=== PATIENT | female | born 1995 | race Caucasian/White ===

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

== ENCOUNTER → 2019-03-07 | Outpatient (CLI) | payer OTHER ==
[~2019-03-07] MED LIST: LEVO1TAB20 PO; METH18TA4 PO; METH27TA4 PO
--- NOTE | 2019-03-07 11:07 | Diagnostic Imaging Report ---
INDICATION: Anatomy scan. TECHNIQUE: Multiple real-time grayscale images were obtained over the gravid uterus. COMPARISON: None FINDINGS: There is a single live fetus in a variable presentation. heart rate was recorded at 155 BPM. Placenta is posterior. Amniotic fluid volume is normal. Cervical length is 4.2 cm. The kidneys, bladder and stomach are unremarkable. The brain is unremarkable. There is a four-chamber heart. There is a three-vessel cord with normal insertion. spine is unremarkable. Biometrical measurements are as follows: Biparietal 4.63 cm, age 20 weeks 0 days. Head circumference 17.81 cm, age 20 weeks 2 days. Abdominal circumference 15.38 cm, age 20 weeks 5 days. Femur length 3.39 cm, age 20 weeks 5 days. Sonographic estimate age: 20 weeks 3 days. Sonographic estimated date of delivery: 07/22/2019. Estimated Weight: 361 gm (+/- 53 gm). LMP percentile: 44%. heart rate: 155 beats per minute. number: 1 of 1. IMPRESSION: Single live IUP at approximately 20 weeks 3 days gestational age. Estimated date of confinement sonographically is 07/22/2019. Dictated by: Dictated on workstation # [id number]
== END ==
LOC: RAD 09:34
PROVIDERS: ATTEND Nurse Practitioner Women's Health
DX: Z34.92 Encounter for supervision of normal pregnancy, unspecified, second trimester (principal); Z3A.20 20 weeks gestation of pregnancy
CPT/HCPCS: 76805

== ENCOUNTER → 2019-05-03 | Outpatient (CLI) | payer MEDICAID, OTHER ==
--- NOTE | 2019-05-03 11:50 | Diagnostic Imaging Report ---
INDICATION: Follow-up growth. TECHNIQUE: Multiple real-time grayscale images were obtained over the gravid uterus. COMPARISON: 03/07/2019. FINDINGS: There is a single live fetus in a breech presentation. heart rate was recorded at 147 BPM. Placenta is posterior. Amniotic fluid volume is normal. Cervical length is 3.8 cm. Biometrical measurements are as follows: Biparietal 7.51 cm, age 30 weeks 1 days. Head circumference 27.58 cm, age 30 weeks 2 days. Abdominal circumference 25.31 cm, age 29 weeks 4 days. Femur length 5.57 cm, age 29 weeks 3 days. Sonographic estimate age: 29 weeks 6 days. Sonographic estimated date of delivery: 07/13/2019. Estimated Weight: 1413 gm (+/- 206 gm). LMP percentile: 69%. heart rate: 147 beats per minute. number: 1 of 1. IMPRESSION: Single live IUP of approximately 30 weeks gestational age, showing normal interval growth when compared with prior exam. No complicating features are identified. Dictated by: Dictated on workstation # [id number]
== END ==
LOC: RAD 10:04
PROVIDERS: ATTEND Nurse Practitioner Women's Health
DX: Z36.89 Encounter for other specified antenatal screening (principal); Z3A.30 30 weeks gestation of pregnancy; Z79.899 Other long term (current) drug therapy
CPT/HCPCS: 76816

== ENCOUNTER → 2019-06-04 | Outpatient (CLI) | payer MEDICAID ==
--- NOTE | 2019-06-04 13:50 | Diagnostic Imaging Report ---
INDICATION: Evaluate growth. TECHNIQUE: Multiple real-time grayscale images were obtained over the gravid uterus. COMPARISON: 05/03/2019. FINDINGS: There is a single live fetus in a cephalic presentation. heart rate was recorded at 132 bpm. Placenta is posterior. Amniotic fluid index is 18.7 cm. Cervical length is 4.7 cm. Biometrical measurements are as follows: Biparietal 8.76 cm, age 35 weeks 3 days. Head circumference 33.65 cm, age 38 weeks 4 days. Abdominal circumference 31.38 cm, age 35 weeks 3 days. Femur length 6.90 cm, age 35 weeks 3 days. Sonographic estimate age: 36 weeks 2 days. Sonographic estimated date of delivery: 06/30/2019. Estimated Weight: 2741 gm (+/- 400 gm). LMP percentile: 97%. heart rate: 132 beats per minute. number: 1 of 1. IMPRESSION: Single live IUP measuring 36 weeks gestational age. This is measuring approximately two weeks larger when compared with prior ultrasounds. No other abnormality is detected. Dictated by: Dictated on workstation # [id number]
== END ==
LOC: RAD 11:32
PROVIDERS: ATTEND Nurse Practitioner Women's Health
DX: Z36.9 Encounter for antenatal screening, unspecified (principal); Z3A.36 36 weeks gestation of pregnancy; Z79.899 Other long term (current) drug therapy
CPT/HCPCS: 76816

== ENCOUNTER 2019-06-23 12:50 | Outpatient (CLI) | payer MEDICAID ==
[~2019-06-23] VITALS: Ht 167.7 cm; Wt 85.5 kg
--- NOTE | 2019-06-23 12:42 | NUR ---
OPLA PERRY presented to unit from home, with c/o CRAMPING / PELVIC PAIN. OPAL PERRY weighed, gowned, voided, and to bed. EFHM and TOCO applied, VS taken. OPAL PERRY oriented to bed controls, call light, TV, heat, and A/C controls.
[2019-06-23 13:17] VITALS: BP 105/66
[2019-06-23 13:33] LABS: BILIRUBIN,URINE NEGATIVE (NEGATIVE); CLARITY,URINE CLEAR; COLOR,URINE YELLOW; GLUCOSE, URINE (UA) NEGATIVE (NEGATIVE); KETONES,URINE NEGATIVE (NEGATIVE); LEUKOCYTE ESTERASE ,URINE NEGATIVE (NEGATIVE); NITRITE,URINE NEGATIVE (NEGATIVE); PROTEIN,URINE NEGATIVE (NEGATIVE)
[2019-06-23 13:40] LABS: BACTERIA,URINE NEGATIVE /HPF; WBC,URINE RARE /HPF
--- NOTE | 2019-06-23 13:44 | NUR ---
Dr. Alexander notified of patient's arrival, complaints, exam, UA, and EFM tracing. New orders received.
--- NOTE | 2019-06-23 14:00 | NUR ---
[place] Head tray provided.
[2019-06-23] MEDS ORDERED: PREN1TAB79 PO (15:09)
--- NOTE | 2019-06-23 15:19 | Discharge Summary ---
Discharge Summary 36 weeks gestation with false labor Patient was a clinical evaluation and was not seen VICK PALACIOS MD Jun 23, 2019 15:19
--- NOTE | 2019-06-23 15:26 | NUR ---
Discharge instructions and medications reviewed with patient both written and verbally. Patient verbalizes understanding and questions answered.
--- NOTE | 2019-06-23 15:30 | NUR ---
Patient discharged at this time and ambulated from the unit with no signs or symptoms of distress noted.
== END 2019-06-23 15:30 | disposition home or self-care (01) ==
LOC: WSo 12:50 → LDRP 12:50 → WSo 15:30
PROVIDERS: ATTEND Obstetrics & Gynecology
DX: O47.03 False labor before 37 completed weeks of gestation, third trimester (principal); Z3A.36 36 weeks gestation of pregnancy
CPT/HCPCS: 81000; 99214

== ENCOUNTER 2019-06-25 17:25 | Outpatient (CLI) | payer MEDICAID ==
[~2019-06-25] VITALS: Ht 170.5 cm; Wt 86.5 kg
[~2019-06-25 17:25] MED LIST changes: +PREN1TAB79 PO
--- NOTE | 2019-06-25 17:25 | NUR ---
OPAL PERRY presented to unit via Ambulatory from ED, accompanied by noone, with c/o ABD PAIN. OPAL PERRY weighed, gowned, voided, and to bed. EFHM and TOCO applied, VS taken. OPAL PERRY oriented to bed controls, call light, TV, heat, and A/C controls.
[2019-06-25 17:50] VITALS: BP 119/66
[2019-06-25 18:00] VITALS: BP 119/66
[2019-06-25 18:20] VITALS: BP 108/62
[2019-06-25 18:22] LABS: BILIRUBIN,URINE NEGATIVE (NEGATIVE); CLARITY,URINE CLEAR; COLOR,URINE YELLOW; GLUCOSE, URINE (UA) NEGATIVE (NEGATIVE); KETONES,URINE NEGATIVE (NEGATIVE); LEUKOCYTE ESTERASE ,URINE 1+ (NEGATIVE); NITRITE,URINE NEGATIVE (NEGATIVE); PH,URINE 6.5 (5-9); PROTEIN,URINE NEGATIVE (NEGATIVE)
[2019-06-25 18:31] LABS: BACTERIA,URINE TRACE /HPF; WBC,URINE RARE /HPF
--- NOTE | 2019-06-25 18:40 | NUR ---
RN calls Dr Perez with pt report. Pt of Dr Severino, first , 36 weeks and 2 days - CO worsening epigastric pain that started about 1530 today and UC that began about 1430 today stating feeling UC Q 10 min rating 7/10. TOCO shows UC Q 2-5 min at this time. Pt CO headache not relieved by tylenol. Decreased movement since pain began. SVE closed cervix. No leaking, bleeding. Urine dip results read to Dr. Dr Perez wants to start IV, give 1 L LR, 25mcg fent, & Fioricet. RN to call with update after interventions.
[2019-06-25] MEDS ORDERED: fentaNYL INJECTION 100 MCG/2 ML AMP IVP PRN (18:45)
[2019-06-25] MEDS ORDERED: LACTATED RINGERS 1,000 ML IV SCH (18:45)
[2019-06-25] MEDS ORDERED: ACET/BUTAL/CAFF (FIORICET) TAB PO PRN (18:45)
[2019-06-25 18:50] VITALS: BP 105/59
--- NOTE | 2019-06-25 19:10 | NUR ---
report given to benjamín hoffman
[2019-06-25 20:00] VITALS: BP 111/58
[2019-06-25] MEDS ORDERED: D5 LR IV SOLUTION 1,000 ML IV ONE (20:46)
[2019-06-25] MEDS: D5 LR IV SOLUTION 1,000 ML IV SCH (20:51)
[2019-06-25 21:00] VITALS: BP 116/60
[2019-06-26] MEDS: D5 LR IV SOLUTION 1,000 ML IV SCH (04:57)
[2019-06-26 08:00] VITALS: BP 112/62
--- NOTE | 2019-06-26 08:00 | NUR ---
initial shift assessment completed. reports c/o headache in frontal area. reports occasional ctx.
--- NOTE | 2019-06-26 09:45 | NUR ---
monitors off. MAX reviewed with pt and family members. questions answered prn. Addendum: 06/26/19 at 1122 by BRO HESS RN dismissal order received from . pt reports ORTEGA earlier relieved by Christopher. Rx received from - will call into pharmacy of pt's choice. follow up with as previously scheduled
--- NOTE | 2019-06-26 10:02 | NUR ---
dismissal instructions given- verbalizes understanding. signature page signed, placed on chart.
--- NOTE | 2019-06-26 10:05 | NUR ---
pt ambulated to private vehicle with s/o @ side. pt stable with no sx's of distress noted.
== END 2019-06-26 10:05 | disposition home or self-care (01) ==
LOC: WSo 17:25 → LDRP 17:26 → WSo 06-26 10:05
PROVIDERS: ATTEND Obstetrics & Gynecology
DX: O26.893 Other specified pregnancy related conditions, third trimester (principal); R10.13 Epigastric pain; Z3A.36 36 weeks gestation of pregnancy
CPT/HCPCS: 81000

== ENCOUNTER 2019-07-10 15:36 | Outpatient (CLI) | payer MEDICAID ==
[~2019-07-10] VITALS: Ht 167.7 cm; Wt 87.5 kg
--- NOTE | 2019-07-10 15:29 | NUR ---
OPAL PERRY presented to unit via AMBULATORY from HOME, accompanied by S/O, with c/o PELVIC PAIN AND PRESSURE. OPAL PERRY weighed, gowned, voided, and to bed. EFHM and TOCO applied, VS taken. OPAL PERRY oriented to bed controls, call light, TV, heat, and A/C controls.
[2019-07-10 15:41] VITALS: BP 129/68
[2019-07-10 15:50] VITALS: BP 129/68
[2019-07-10 15:51] LABS: BILIRUBIN,URINE NEGATIVE (NEGATIVE); CLARITY,URINE CLEAR; COLOR,URINE YELLOW; GLUCOSE, URINE (UA) NEGATIVE (NEGATIVE); KETONES,URINE NEGATIVE (NEGATIVE); LEUKOCYTE ESTERASE ,URINE NEGATIVE (NEGATIVE); NITRITE,URINE NEGATIVE (NEGATIVE); PH,URINE 7.5 (5-9); PROTEIN,URINE NEGATIVE (NEGATIVE)
[2019-07-10] MEDS ORDERED: BUPR-42 PO (15:53)
[2019-07-10 16:15] LABS: AMORPHOUS SEDIMENT,UR FEW AMOR PHOSPHATE /LPF; BACTERIA,URINE TRACE /HPF
--- NOTE | 2019-07-10 16:21 | NUR ---
DR. EWING CALLED, NO ANSWER.
--- NOTE | 2019-07-10 16:32 | NUR ---
DR. EWING CALLED UNIT, UPDATED ON PT'S ARRIVAL, C/O, GESTATION, REVIEW OF STRIP, VS AND UA RESULTS. PT ALREADY HAS AN APPT TO BE SEEN TOMORROW. ORDERS RECEIVED FOR DISCHARGE HOME WITH LABOR PRECAUTIONS.
--- NOTE | 2019-07-10 16:42 | NUR ---
DISCHARGE PAPERS PROVIDED AND REVIEWED WITH PT, PT VERBALIZES UNDERSTANDING AND DENIES ANY QUESTIONS AT THIS TIME. PAPER SIGNED.
--- NOTE | 2019-07-10 16:45 | NUR ---
PT DISCHARGED FROM [facility] TO [facility] VIA AMBULATORY IN STABLE CONDITION ACC BY S/O.
--- NOTE | 2019-07-11 07:58 | Physician Query-Final Dx ---
MAGALIE DELGADO 07/11/19 0758: Clinic Account Progress/Dx Physician Query: Please give diagnosis Please include # weeks gestation Date of Service Jul 10, 2019 at 15:36 OLIMPIA EWING DO 07/12/19 0832: Clinic Account Progress/Dx DIAGNOSIS: Diagnosis 38 week pelvic pressure MAGALIE DELGADO Jul 11, 2019 07:58 OLIMPIA EWING DO Jul 12, 2019 08:32
== END 2019-07-10 16:45 | disposition home or self-care (01) ==
LOC: WSo 15:36 → LDRP 15:36 → WSo 16:45
PROVIDERS: ATTEND Obstetrics & Gynecology
DX: O26.899 Other specified pregnancy related conditions, unspecified trimester (principal); R10.2 Pelvic and perineal pain; Z3A.00 Weeks of gestation of pregnancy not specified
CPT/HCPCS: 81000

== ENCOUNTER 2019-07-16 19:19 | Inpatient (IN) | payer MEDICAID ==
[~2019-07-16] VITALS: Ht 167 cm; Wt 88.0 kg
[2019-07-16] VITALS (9 sets, daily range): BP systolic 108–131; BP diastolic 58–73
--- NOTE | 2019-07-16 19:15 | NUR ---
OPAL PERRY presented to unit via ambulatory from ED, accompanied by s/o , with c/o INDUCTION 39 06/15. OPAL PERRY weighed, gowned, voided, and to bed. EFHM and TOCO applied, VS taken. OPAL PERRY oriented to bed controls, call light, TV, heat, and A/C controls.
[~2019-07-16 19:19] MED LIST changes: +BUPR-42 PO
[2019-07-16] MEDS ORDERED: D5 LR IV SOLUTION 1,000 ML IV ONE (19:42)
[2019-07-16] MEDS ORDERED: LACTATED RINGERS 1,000 ML IV SCH (19:44)
[2019-07-16] MEDS ORDERED: TERBUTALINE INJ 1 MG/ML (BRETHINE) AMP SC PRN (19:45)
[2019-07-16] MEDS ORDERED: MISOPROSTOL 100 MCG (CYTOTEC) TAB PO NR (19:45)
[2019-07-16] MEDS: D5 LR IV SOLUTION 1,000 ML IV SCH (20:02)
[2019-07-16 20:13] LABS: BASOPHILS % (AUTO) 0 % (0-10); EOSINOPHILS # (AUTO) 0.1 10^3/uL (0.0-0.3); EOSINOPHILS % (AUTO) 1 % (0-10); HEMATOCRIT 33 % (35-52); HEMOGLOBIN 10.6 G/DL (11.5-16.0); LYMPHOCYTES # (AUTO) 3.2 X 10^3 (1.0-4.0); LYMPHOCYTES % (AUTO) 24 % (12-44); MEAN CORPUSCULAR HEMOGLOBIN 28 PG (25-34); MEAN CORPUSCULAR HGB CONC 32 G/DL (32-36); MEAN CORPUSCULAR VOLUME 87 FL (80-99); MEAN PLATELET VOLUME 9.4 FL (7.4-10.4); MONOCYTES # (AUTO) 1.1 X 10^3 (0.0-1.0); MONOCYTES % (AUTO) 8 % (0-12); NEUTROPHILS # (AUTO) 8.9 X 10^3 (1.8-7.8); NEUTROPHILS % (AUTO) 67 % (42-75); PLATELET COUNT 344 10^3/uL (130-400); RED CELL DISTRIBUTION WIDTH 14.8 % (10.0-14.5); WHITE BLOOD COUNT 13.3 10^3/uL (4.3-11.0)
[2019-07-16 20:56] LABS: BILIRUBIN,URINE NEGATIVE (NEGATIVE); CLARITY,URINE SL CLOUDY; COLOR,URINE YELLOW; GLUCOSE, URINE (UA) NEGATIVE (NEGATIVE); KETONES,URINE NEGATIVE (NEGATIVE); LEUKOCYTE ESTERASE ,URINE NEGATIVE (NEGATIVE); NITRITE,URINE NEGATIVE (NEGATIVE); PH,URINE 7.5 (5-9); PROTEIN,URINE NEGATIVE (NEGATIVE)
[2019-07-16 21:25] LABS: BACTERIA,URINE TRACE /HPF; WBC,URINE 0-2 /HPF
[2019-07-16 21:26] LABS: AMORPHOUS SEDIMENT,UR LARGE AMOR PHOSPHATE /LPF; SQUAMOUS EPITHELIAL CELL,UR RARE /HPF
[2019-07-17] VITALS (71 sets, daily range): BP systolic 96–135; BP diastolic 6–81
[2019-07-17] MEDS: MISOPROSTOL 100 MCG (CYTOTEC) TAB PO SCH ×3 (00:45→09:19)
[2019-07-17] MEDS ORDERED: ZOLPIDEM 5 MG (AMBIEN) TAB PO ONE (00:45)
[2019-07-17] MEDS: D5 LR IV SOLUTION 1,000 ML IV SCH ×4 (03:40→22:32)
--- NOTE | 2019-07-17 07:25 | NUR ---
DR. EWING CALLED UNIT, UPDATED GIVEN PER H. TRACEY ZEPEDA - NEW ORDERS RECEIVED.
[2019-07-17] MEDS ORDERED: OXYTOCIN PRE-MIX DRIP 500 ML IV ONE (13:34)
[2019-07-17] MEDS ORDERED: BUTORPHANOL INJ 2 MG/ML (STADOL) VIAL ONE (18:36)
[2019-07-17] MEDS ORDERED: BUTORPHANOL INJ 2 MG/ML (STADOL) VIAL IV ONE (18:45)
[2019-07-17] MEDS ORDERED: SUFENTA 0.6MCG/ML BUPIVA 0.125 100 ML ONE (20:18)
[2019-07-17] MEDS ORDERED: BUPIVACAINE 0.25% 30 ML (SENSORCAINE) VIAL ONE (20:54)
[2019-07-17] MEDS ORDERED: fentaNYL INJECTION 100 MCG/2 ML AMP ONE (20:54)
[2019-07-17] MEDS ORDERED: LIDOCAINE PF 2% 5 ML (XYLOCAINE) VIAL ONE (20:54)
[2019-07-17] MEDS ORDERED: LACTATED RINGERS 1,000 ML IV SCH (21:33)
[2019-07-17] MEDS ORDERED: NALOXONE 0.4 MG/ML 1 ML (NARCAN) VIAL IV PRN (21:45)
[2019-07-17] MEDS ORDERED: diphenhydrAMINE 50 MG/ML INJ (BENADRYL) IV PRN (21:45)
[2019-07-17] MEDS ORDERED: EPIDURAL (SUFENTA 0.6MCG/ML BUPIVA 0.125%) 100 ML BAG EPI PRN (21:45)
[2019-07-17] MEDS: ONDANSETRON 4 MG/2 ML (SDV) Z0FRAN IV PRN (22:59)
[2019-07-18] VITALS (45 sets, daily range): BP systolic 102–153; BP diastolic 53–80
[2019-07-18] MEDS ORDERED: FAMOTIDINE 20MG/2ML IV (PEPCID) ONE (04:19)
[2019-07-18] MEDS ORDERED: FAMOTIDINE 20MG/2ML IV (PEPCID) IVP ONE (04:30)
[2019-07-18] MEDS: D5 LR IV SOLUTION 1,000 ML IV SCH (06:07)
[2019-07-18] MEDS ORDERED: LIDOCAINE/EPI 2% 1:200,00 (XYLOCAINE) 10 ML VIAL ONE (07:34)
[2019-07-18] MEDS ORDERED: MINERAL OIL CONCENTRATE 99.9% 15 ML UDC ONE (07:34)
[2019-07-18] MEDS: OXYTOCIN PRE-MIX DRIP 500 ML IV SCH ×2 (08:56→08:57)
[2019-07-18] MEDS: ONDANSETRON 4 MG/2 ML (SDV) Z0FRAN IV PRN (09:16)
[2019-07-18] MEDS ORDERED: OXYTOCIN PRE-MIX DRIP 500 ML IV SCH (09:16)
--- NOTE | 2019-07-18 09:17 | OB Labor & Delivery Record ---
Vag Delivery Note Vag Delivery Note Date of Delivery: 07/18/19 Preoperative Diagnosis: Malick Sherman is a (23 /Para / ,Gestational Age (wks)39with [] Postoperative Diagnosis: Same Surgeon: OLIMPIA EWING Horticulture Superintendent: [] Anesthesia: [] Delivery Type: [] Findings: [] Viable [] , apgars [], weight [] Lacerations: Intact placenta with 3 vessel cord. No nuchal cord, body cord or shoulder dystocia Cytotec 800 mcg placed for hemorrhage prophylaxis Estimated Blood Loss: [] ml Complications: None Condition: Stable Description of Procedure: The patient is a 23 year old female who presented []. She was admitted and informed consent was obtained. Her labor course was remarkable for [] She pr ogressed to complete dilatation and began to push. She was then set up for delivery. The infant's head was delivered atraumatically in the [] position. The shoulders and remainder of the 's body were then delivered without difficulty. Upon delivery, the head was held below the level of the perineum and the mouth and nares were bulb suctioned. The cord was doubly clamped and cut and the was handed off to the pediatric staff. An intact placenta with 3-vessel cord delivered via Kiley and there was found to be minimal bleeding.~ Vigorous fundal massage was performed and the fundus was found to be firm. IV oxytocin was given. Examination of the vagina and perineum revealed a [] laceration repaired in the usual fashion with 3-0 vicryl suture. Following the repair, sponge, instrument and needle counts were correct. Mom and baby were both in stable condition in the labor suite. Vitals - Labs Vital Signs - I&O Vital Signs Date Time Temp Pulse Resp B/P (MAP) Pulse Ox O2 Delivery O2 Flow Rate FiO2 07/18/19 07:00 108 18 108/60 (76) 100 Room Air 07/18/19 06:45 93 18 114/61 (78) 100 Room Air 07/18/19 06:30 104 18 112/64 (80) 100 Non Rebreather 15.00 07/18/19 06:15 94 18 106/58 (74) 100 Non Rebreather 15.00 07/18/19 06:00 36.8 83 18 104/57 (73) 100 Non Rebreather 15.00 07/18/19 05:45 86 18 120/73 (89) 100 Non Rebreather 15.00 07/18/19 05:30 87 18 112/68 (83) 100 Non Rebreather 15.00 07/18/19 05:15 86 18 112/68 (83) 100 Non Rebreather 15.00 07/18/19 05:00 107 18 120/80 (93) 100 Non Rebreather 15.00 07/18/19 04:45 91 18 122/71 (88) 100 Non Rebreather 15.00 07/18/19 04:30 36.8 96 18 112/64 (80) 100 Non Rebreather 15.00 07/18/19 04:15 36.8 96 18 112/64 (80) 100 Non Rebreather 15.00 07/18/19 04:00 105 18 115/69 (84) 100 Non Rebreather 15.00 07/18/19 03:45 99 18 113/68 (83) 100 Non Rebreather 15.00 07/18/19 03:30 85 18 114/69 (84) 100 Non Rebreather 15.00 07/18/19 03:15 104 18 112/63 (79) 100 Non Rebreather 15.00 07/18/19 03:00 77 18 113/67 (82) 100 Non Rebreather 15.00 07/18/19 02:45 88 18 109/69 (82) 100 Non Rebreather 15.00 07/18/19 02:30 Room Air 07/18/19 02:15 107 18 112/61 (78) 100 Room Air 07/18/19 02:00 87 18 109/62 (78) 100 Room Air 07/18/19 01:45 96 18 111/67 (82) 100 Room Air 07/18/19 01:30 94 18 104/64 (77) 100 Room Air 07/18/19 01:15 83 18 109/66 (80) 100 Room Air 07/18/19 01:00 36.5 96 18 114/66 (82) 100 Room Air 07/18/19 00:45 93 18 108/67 (81) 100 Room Air 07/18/19 00:30 96 18 114/67 (83) 99 Room Air 07/18/19 00:15 85 18 109/62 (78) 99 Room Air 07/18/19 00:00 73 18 113/61 (78) 99 Room Air 07/17/19 23:45 101 18 112/65 (81) 100 Room Air 07/17/19 23:30 99 18 109/58 (75) 100 Room Air 07/17/19 23:15 103 18 114/74 (87) 100 Room Air 07/17/19 23:00 104 18 116/62 (80) 100 Room Air 07/17/19 22:45 84 18 117/64 (81) 100 Room Air 07/17/19 22:30 93 18 128/66 (86) 100 Room Air 07/17/19 22:15 89 18 126/70 (88) 100 Room Air 07/17/19 22:10 90 18 128/75 (92) 100 Non Rebreather 15.00 07/17/19 22:07 88 18 124/75 (91) 100 Non Rebreather 15.00 07/17/19 22:04 90 18 122/73 (89) 100 Non Rebreather 15.00 07/17/19 22:01 96 18 118/68 (85) 100 Non Rebreather 15.00 07/17/19 22:00 86 18 123/70 (87) 100 Room Air 07/17/19 21:55 82 18 117/67 (84) 100 Non Rebreather 15.00 07/17/19 21:52 86 18 123/70 (87) 100 Non Rebreather 15.00 07/17/19 21:49 89 18 98/56 (70) 100 Non Rebreather 15.00 07/17/19 21:46 88 18 112/59 (76) 100 Non Rebreather 15.00 07/17/19 21:45 18 Room Air 07/17/19 21:43 107 18 96/52 (67) 99 Non Rebreather 15.00 07/17/19 21:40 113 18 99/60 (73) 99 Non Rebreather 15.00 07/17/19 21:37 107 18 104/62 (76) 98 Room Air 07/17/19 21:33 101 18 103/61 (75) Room Air 07/17/19 21:31 108 18 107/67 (80) Room Air 07/17/19 21:30 18 Room Air 07/17/19 21:27 102 18 114/70 (85) 99 Room Air 07/17/19 21:15 100 18 122/69 (86) 100 Room Air 07/17/19 21:00 97 18 129/70 (89) 100 Room Air 07/17/19 20:45 84 18 124/65 (84) 100 Room Air 07/17/19 20:30 102 18 109/55 (73) 100 Room Air 07/17/19 20:15 78 18 111/50 (70) 99 Room Air 07/17/19 20:00 82 18 110/66 (81) 99 Room Air 07/17/19 19:45 92 18 112/59 (76) 98 Room Air 07/17/19 19:30 36.8 90 18 132/72 (92) Room Air 07/17/19 19:15 95 18 135/70 (91) Room Air 07/17/19 18:50 95 18 120/55 (76) Room Air 07/17/19 18:35 88 18 106/56 (73) Room Air 07/17/19 18:26 37.0 07/17/19 18:20 88 18 109/63 (78) Room Air 07/17/19 18:04 80 18 125/69 (87) Room Air 07/17/19 17:50 37.2 96 18 130/74 (92) Room Air 07/17/19 17:35 92 18 115/65 (82) Room Air 07/17/19 17:21 36.8 81 18 117/61 (79) Room Air 07/17/19 17:05 84 18 116/65 (82) Room Air 07/17/19 16:49 86 18 129/77 (94) Room Air 07/17/19 16:43 36.9 07/17/19 16:34 81 18 128/75 (92) Room Air 07/17/19 16:19 81 18 124/70 (88) Room Air 07/17/19 16:05 36.8 82 18 118/66 (83) Room Air 07/17/19 15:38 36.8 07/17/19 15:34 89 18 119/65 (83) Room Air 07/17/19 15:20 96 18 119/72 (88) Room Air 07/17/19 15:06 90 18 111/65 (80) Room Air 07/17/19 14:28 86 18 128/74 (92) Room Air 07/17/19 13:59 93 18 122/71 (88) Room Air 07/17/19 13:50 37.1 07/17/19 13:28 88 18 123/74 (90) Room Air 07/17/19 11:22 36.7 07/17/19 11:18 85 18 121/70 (87) Room Air 07/17/19 10:46 92 18 128/65 (86) Room Air 07/17/19 10:17 87 18 129/78 (95) Room Air 07/17/19 09:52 100 18 123/73 (90) Room Air 07/17/19 09:21 36.6 OLIMPIA EWING DO Jul 18, 2019 09:17
[2019-07-18] MEDS ORDERED: TETANUS,DIPTH,PERTUSS P/F (BOOSTRIX) 0.5 ML VIAL IM ONE (09:30)
[2019-07-18] MEDS ORDERED: WITCH HAZEL(TUCKS) 40 EA JAR TOP PRN (09:30)
[2019-07-18] MEDS ORDERED: DIBUCAINE (NUPERCAINAL) 1% OINT 30 GM TOP PRN (09:30)
[2019-07-18] MEDS ORDERED: MEASLES,MUMPS,RUBELLA 1 EA INJ SQ ONE (09:30)
[2019-07-18] MEDS ORDERED: BENZOCAINE/MENTHOL (DERMOPLAST) 60 ML CAN TP PRN (09:30)
[2019-07-18] MEDS: IBUPROFEN 600 MG (MOTRIN) TAB PO SCH ×3 (12:48→23:42)
[2019-07-18] MEDS ORDERED: CATHETER FLUSH 10 ML SYR IV SCH (14:00)
--- NOTE | 2019-07-18 15:30 | NUR ---
CARE ASSUMED OF THIS PT. CARING FOR INFANT IN ROOM. GOOD INTERACTION NOTED.
[2019-07-18] MEDS: ACETAMINOPHEN 500 MG TAB (TYLENOL) PO SCH ×2 (15:39→23:42)
--- NOTE | 2019-07-18 17:00 | NUR ---
SLEEPING IN BED. ROOM DARKENED.
[2019-07-18] MEDS: DOCUSATE SODIUM 100 MG (COLACE) CAP PO SCH (20:55)
[2019-07-19 00:17] VITALS: BP 111/75
[2019-07-19 04:26] VITALS: BP 124/62
[2019-07-19] MEDS: IBUPROFEN 600 MG (MOTRIN) TAB PO SCH ×2 (06:08→13:39)
[2019-07-19 06:32] LABS: BASOPHILS % (AUTO) 0 % (0-10); EOSINOPHILS # (AUTO) 0.2 10^3/uL (0.0-0.3); EOSINOPHILS % (AUTO) 1 % (0-10); HEMATOCRIT 30 % (35-52); HEMOGLOBIN 9.3 G/DL (11.5-16.0); LYMPHOCYTES # (AUTO) 3.4 X 10^3 (1.0-4.0); LYMPHOCYTES % (AUTO) 21 % (12-44); MEAN CORPUSCULAR HEMOGLOBIN 27 PG (25-34); MEAN CORPUSCULAR HGB CONC 31 G/DL (32-36); MEAN CORPUSCULAR VOLUME 87 FL (80-99); MEAN PLATELET VOLUME 9.4 FL (7.4-10.4); MONOCYTES # (AUTO) 1.3 X 10^3 (0.0-1.0); MONOCYTES % (AUTO) 8 % (0-12); NEUTROPHILS # (AUTO) 11.7 X 10^3 (1.8-7.8); NEUTROPHILS % (AUTO) 70 % (42-75); PLATELET COUNT 279 10^3/uL (130-400); RED CELL DISTRIBUTION WIDTH 14.9 % (10.0-14.5); WHITE BLOOD COUNT 16.6 10^3/uL (4.3-11.0)
[2019-07-19] MEDS ORDERED: PRENATAL VITAMIN 1 EA TAB PO SCH (07:00)
[2019-07-19] MEDS: DOCUSATE SODIUM 100 MG (COLACE) CAP PO SCH (07:29)
[2019-07-19 07:30] VITALS: BP 118/76
[2019-07-19] MEDS: ACETAMINOPHEN 500 MG TAB (TYLENOL) PO SCH (07:30)
[2019-07-19 08:08] LABS: LYMPHOCYTES % (MANUAL) 18 %; MONOCYTES % (MANUAL) 7 %; NEUTROPHILS % (MANUAL) 75 %; RBC MORPH NORMAL; TOXIC GRANULATION/VACUOLAZATIO 1+
--- NOTE | 2019-07-19 08:18 | Postpartum Progress Note ---
Note Note Day #1 Subjective: Patient is without complaints. Ambulating, voiding. Tolerating a regular diet without nausea or vomiting. Normal lochia. Pain is well controlled with oral pain medications. Patient is feeding and denies having any nausea or vomiting. Admits to some swelling in her lower extremities but denies having any pain in her legs or calves. Denies having any fever, chills, SOB, or chest pain. Objective: Vitals: BP 124/62 HR75 RR14 Tmax 36.2 WBC 16.6, H/H 9.3/30, RDW 14.9, platelets are 279 Physical Exam: General - Alert and oriented, no apparent distress, , affect was neutral Abdomen - Soft, appropriately tender to palpation, non-distended, fundus firm at umbilicus Extremities - mild lower leg edema, negative Minnie's bilaterally Assessment: post- day # 1, status post 1st vaginal delivery. Recovering well, hemodynamically stable Plan: Routine care. Encourage breast feeding. Encourage ambulation. Ferrous sulfate supplementation. Plan for discharge today or tomorrow Vitals - Labs Vital Signs - I&O Vital Signs Date Time Temp Pulse Resp B/P (MAP) Pulse Ox O2 Delivery O2 Flow Rate FiO2 07/19/19 07:30 36.2 07/19/19 04:26 36.5 75 14 124/62 (82) 96 Room Air 07/19/19 00:17 36.4 74 20 111/75 (87) 97 Room Air 07/18/19 20:00 36.7 84 16 116/66 (83) 100 Room Air 07/18/19 16:00 37.0 98 18 130/60 (83) 97 Room Air 07/18/19 12:48 37.6 07/18/19 12:45 88 131/74 (93) 100 07/18/19 10:55 98 121/71 (88) 07/18/19 10:40 112 112/63 (79) 07/18/19 10:25 88 123/68 (86) 07/18/19 10:10 103 124/73 (90) 07/18/19 09:55 96 124/65 (84) 07/18/19 09:40 92 120/63 (82) 07/18/19 09:25 96 127/65 (85) 07/18/19 09:10 125 136/71 (92) 07/18/19 08:55 107 102/53 (69) Room Air 07/18/19 08:40 110 102/58 (73) 07/18/19 08:15 113 100 Room Air I & O 07/19/19 07:00 Intake Total 1300 ml Balance 1300 ml Labs Laboratory Tests 07/19/19 05:57: White Blood Count 16.6H, Red Blood Count 3.47L, Hemoglobin 9.3L, Hematocrit 30L, Mean Corpuscular Volume 87, Mean Corpuscular Hemoglobin 27, Mean Corpuscular Hemoglobin Concent 31L, Red Cell Distribution Width 14.9H, Platelet Count 279, Mean Platelet Volume 9.4, Neutrophils (%) (Auto) 70, Lymphocytes (%) (Auto) 21, Monocytes (%) (Auto) 8, Eosinophils (%) (Auto) 1, Basophils (%) (Auto) 0, Neutrophils # (Auto) 11.7H, Lymphocytes # (Auto) 3.4, Monocytes # (Auto) 1.3H, Eosinophils # (Auto) 0.2, Basophils # (Auto) 0.0 MAINOR CALL,MED STUDENT Jul 19, 2019 08:18
[2019-07-19] MEDS ORDERED: IBUP-844 PO (08:45)
[2019-07-19] MEDS ORDERED: FERR325T18 PO (08:45)
[2019-07-19] MEDS ORDERED: ACET-93 PO (08:45)
--- NOTE | 2019-07-19 08:46 | Discharge Inst-Women's Service ---
Discharge Inst-Women's Serv Depart Medication/Instructions New, Converted or Re-Newed RX: RX on Chart Final Diagnosis social induction acute anemia Problems Reviewed?: Yes Consults/Follow Up Additional Follow Up: Yes (1-2 weeks with Josseline; 6 weeks pp exam with Maycol) Activity Activity: Activity as Tolerated Driving Instructions: You May Drive NO SMOKING: NO SMOKING Nothing Inside Vagina: No Douching, No [place], No Tampons Diet Discharge Diet: No Restrictions Symptoms to Report to : Swelling Increased, Bleeding Excessive, Pain Increased, Fever Over 101 Degrees F, Vaginal Bleeding Increase, Vaginal Disch arge Foul For Any Problems or Questions: Contact Your Physician OLIMPIA EWING DO Jul 19, 2019 08:46
[2019-07-19] MEDS ORDERED: FERROUS SULF 325 MG (IRON) TAB PO SCH (09:00)
--- NOTE | 2019-07-19 10:55 | NUR ---
Report received from TRACEY Dixon. care assumed of pt.
[2019-07-19 13:39] VITALS: BP 132/68
--- NOTE | 2019-07-19 13:39 | NUR ---
scheduled Motrin given, see eMar for further.
--- NOTE | 2019-07-19 15:00 | NUR ---
dismissal instructions given, verbalizes understanding. reviewed follow up appointments and Rx's. signature page signed, placed on chart.
--- NOTE | 2019-07-19 15:40 | NUR ---
pt ambulated to private vehicle with TRACEY Madrigal, & s/o @ side. infant secured in rear facing car seat. pt stable with no sx's of distress noted.
== END 2019-07-19 15:40 | disposition home or self-care (01) | DRG 807 ==
LOC: LDRP 19:19
PROVIDERS: ADMIT Obstetrics & Gynecology; ATTEND Obstetrics & Gynecology
PROC: 10E0XZZ Delivery of Products of Conception, External Approach (ICD-10-PCS; principal; 2019-07-18)
PROC: 0HQ9XZZ Repair Perineum Skin, External Approach (ICD-10-PCS; 2019-07-18)
DX: O70.0 First degree perineal laceration during delivery (principal); Z37.0 Single live birth; O90.81 Anemia of the puerperium; D64.9 Anemia, unspecified; Z3A.39 39 weeks gestation of pregnancy
CPT/HCPCS: 36415; 81000; 85007; 85025; 85027; 86850; 86900; 86901

== ENCOUNTER → 2020-08-19 | Outpatient (CLI) | payer MEDICAID ==
[~2020-08-19] MED LIST changes: +ACET-93 PO; +FERR325T18 PO; +IBUP-844 PO
--- NOTE | 2020-08-21 10:23 | Diagnostic Imaging Report ---
PROCEDURE: MRI lumbar spine. TECHNIQUE: Multiplanar, multisequence MRI of the lumbar spine was performed without contrast. DATE: August 19, 2020. COMPARISON: None. INDICATION: 24-year-old female, low back pain for years. FINDINGS: There is normal lumbosacral spine alignment. There is no evidence of a diffuse marrow infiltrating or replacing process. There is no compression deformity or other fracture. There is no visualized pars interarticularis defect. There is no identified marrow edema in the region of the pars interarticularis. Additional bone marrow signal is unremarkable. The visualized cord and conus medullaris is unremarkable and terminates at the L1 level. There is mild disc height loss and disc desiccation at L4-L5. L5-S1 is labeled as having a somewhat hypoplastic disc. L1-L2: There is no disc bulge. The facet joints and ligamentum flavum are unremarkable. There is no foraminal narrowing. There is no spinal canal stenosis. L2-L3: There is no disc bulge. The facet joints and ligamentum flavum are unremarkable. There is no foraminal narrowing. There is no spinal canal stenosis. L3-L4: There is no disc bulge. The facet joints and ligamentum flavum are unremarkable. There is no foraminal narrowing. There is no spinal canal stenosis. L4-L5: There is an annular tear and a small broad-based posterior disc protrusion which does near the descending left L5 nerve root. The facet joints and ligamentum flavum are unremarkable. There is no foraminal narrowing. There is no spinal canal stenosis. L5-S1: There is no disc bulge. The facet joints and ligamentum flavum are unremarkable. There is no foraminal narrowing. There is no spinal canal stenosis. IMPRESSION: 1. L4-L5 annular tear with small broad-based posterior disc protrusion which does near the descending left L5 nerve root. 2. Unremarkable bone marrow signal evaluation. Dictated by: Dictated on workstation # [id number]
== END ==
LOC: RAD 15:30
PROVIDERS: ATTEND Nurse Practitioner Family
DX: M51.26 Other intervertebral disc displacement, lumbar region (principal); M51.86 Other intervertebral disc disorders, lumbar region
CPT/HCPCS: 72148